=== PATIENT | female | born 1950 | race Caucasian/White ===

== ENCOUNTER 2017-03-28 20:34 | Emergency (ER) | payer OTHER, MEDICARE ==
[~2017-03-28 20:34] MED LIST: COUMADIN4 MG; KAPIDEX60 MG PO; PERCOCET1 TA2 PO
== END 2017-03-28 20:57 | disposition home or self-care (01) ==
LOC: ER 20:34
PROC: 2W3TXYZ Immobilization of Left Foot using Other Device (ICD-10-PCS; principal; 2017-03-28)
DX: S90.32XA Contusion of left foot, initial encounter (principal); K21.9 Gastro-esophageal reflux disease without esophagitis; Z88.2 Allergy status to sulfonamides; Z79.01 Long term (current) use of anticoagulants; Z79.899 Other long term (current) drug therapy; W19.XXXA Unspecified fall, initial encounter
CPT/HCPCS: 73610-LT; 73630-LT; 99283